=== PATIENT | male | born 1995 | race Caucasian/White ===

== ENCOUNTER 2020-05-27 01:38 | Emergency (ER) | payer BC, MEDICAID ==
[~2020-05-27] VITALS: Ht 177.8 cm; Wt 93.2 kg
[2020-05-27 01:42] VITALS: BP 152/94
[2020-05-27] MEDS ORDERED: AMOX500C2 PO (01:50)
[2020-05-27] MEDS ORDERED: amoxicillin 250mg capsule PO ONE (01:50)
[2020-05-27] MEDS ORDERED: HYDROcodone/acetaminophen 10/325mg tab PO ONE (01:50)
[2020-05-27] MEDS ORDERED: ondansetron 4mg rapidly disintigrating tab PO ONE (01:50)
[2020-05-27] MEDS ORDERED: HYDR-3965 PO (01:50)
== END 2020-05-27 02:14 | disposition home or self-care (01) ==
LOC: ER 01:39
DX: K08.89 Other specified disorders of teeth and supporting structures (principal); Z79.899 Other long term (current) drug therapy
CPT/HCPCS: 99283

== ENCOUNTER 2022-11-17 17:58 | Emergency (ER) | payer OTHER, MEDICAID ==
[~2022-11-17] VITALS: Ht 177.8 cm; Wt 97.7 kg
[2022-11-17 18:12] VITALS: BP 181/79; PULSE 90; RESP 14; TEMP 98.7; O2SAT 98
[2022-11-18] MEDS ORDERED: PRED50TA PO (11:53)
== END 2022-11-17 21:34 | disposition left against medical advice (07) ==
LOC: ER 17:58
DX: M54.2 Cervicalgia (principal); Z53.21 Procedure and treatment not carried out due to patient leaving prior to being seen by health care provider
CPT/HCPCS: 99281

== ENCOUNTER 2022-11-18 10:36 | Emergency (ER) | payer MEDICAID, OTHER ==
[~2022-11-18] VITALS: Ht 177.8 cm; Wt 97.7 kg
[2022-11-18 10:59] VITALS: BP 129/78; PULSE 96; RESP 18; TEMP 98.9; O2SAT 96
[2022-11-18] MEDS ORDERED: PRED50TA PO (11:53)
== END 2022-11-18 12:14 | disposition home or self-care (01) ==
LOC: ER 10:37
DX: S16.1XXA Strain of muscle, fascia and tendon at neck level, initial encounter (principal); M54.12 Radiculopathy, cervical region; Z72.89 Other problems related to lifestyle; Z79.899 Other long term (current) drug therapy; X50.0XXA Overexertion from strenuous movement or load, initial encounter; Y93.89 Activity, other specified; Y92.89 Other specified places as the place of occurrence of the external cause; Y99.8 Other external cause status
CPT/HCPCS: 99283